=== PATIENT | male | born 1990 | race Asian ===

== ENCOUNTER 2018-05-18 22:31 | Emergency (ER) | payer BC ==
[~2018-05-18] VITALS: Ht 182.9 cm; Wt 56.7 kg
[2018-05-18] MEDS ORDERED: Tetanus/Diptheria/Pertussis Vaccine 0.5ml Syr IM ONE (23:00)
[2018-05-18 23:11] VITALS: BP 132/92
[2018-05-18] MEDS ORDERED: IBUPROFEN600 MG ORAL (23:24)
[2018-05-18 23:40] VITALS: BP 132/92
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
== END 2018-05-18 23:40 | disposition home or self-care (01) ==
LOC: EMR 22:58
DX: S00.93XA Contusion of unspecified part of head, initial encounter (principal); V43.62XA Car passenger injured in collision with other type car in traffic accident, initial encounter; S80.01XA Contusion of right knee, initial encounter
CPT/HCPCS: 90471; 90715; 99283